=== PATIENT | female | born 1985 | race Caucasian/White ===

== ENCOUNTER 2020-11-16 13:58 | Emergency (ER) | payer BC ==
--- NOTE | 2020-11-16 14:45 | ED ---
General Adult HPI - General Chief complaint: Nausea/Vomiting/Diarrhea Stated complaint: ABD pain Time Seen by Provider: 11/16/20 14:19 Source: patient Mode of arrival: ambulatory Limitations: no limitations - History of Present Illness Initial comments: Patient is a 35-year-old female presenting to emergency Department with complaints of right upper quadrant pain 5 days. Patient states the pain started on Thursday and she's been also having nausea and vomiting. Patient describes the pain is mostly in her epigastric and right upper quadrant but also she feels like "her abdomen spasms and she has referred pain all the way through to her back on both sides." At its worse she describes the pain as a 9/10, currently it is lower at a 3/10. Patient states [facility], was evaluated with labs and ultrasound and they believe it could be her gallbladder. Patient was discharged home with GI follow-up. Patient states she did call the GI doctor yesterday and were not able to get in since her office is closed however they said if the pain intensifies to go back into the ER. Patient states this morning her pain was at its worse and she continues to have nausea and vomiting. Patient states she was able to keep down some broth last night and some crackers. Patient denies history of abdominal surgeries, she denies any fever or chills. She denies any chest pain or shortness of breath. She states she has been having intermittent diarrhea, no dysuria. She states she is not . She has no further complaints at this time. Upon arrival to the ER, her vital signs are stable. - Related Data Home Medications Medication Instructions Recorded Confirmed Famotidine [Pepcid] 20 mg PO BID 11/16/20 11/16/20 Ibuprofen [Motrin Ib] 400 mg PO Q8H PRN 11/16/20 11/16/20 Ondansetron [Zofran] 4 mg PO Q8H PRN 11/16/20 11/16/20 Previous Rx's Medication Instructions Recorded Dicyclomine [Bentyl] 20 mg PO TID #30 tablet 11/16/20 Allergies Allergy/AdvReac Type Severity Reaction Status Date / Time No Known Allergies Allergy Verified 11/16/20 15:03 Review of Systems ROS Statement: Those systems with pertinent positive or pertinent negative responses have been documented in the HPI. ROS Other: All systems not noted in ROS Statement are negative. Past Medical History Past Medical History: No Reported History History of Any Multi-Drug Resistant Organisms: None Reported Past Surgical History: Orthopedic Surgery, Tonsillectomy Past Psychological History: No Psychological Hx Reported Smoking Status: Current every day smoker Past Alcohol Use History: Daily Past Drug Use History: None Reported General Exam - General Exam Comments Initial Comments: GENERAL: Patient is well-developed and well-nourished. Patient is nontoxic and in no acute distress. HEAD: Atraumatic, normocephalic. EYES: Pupils equal round and reactive to light, extraocular movements intact, sclera anicteric, conjunctiva are normal. Eyelids were unremarkable. ENT: TMs normal, nares patent, oropharynx clear without exudates. Moist mucous membranes. NECK: Normal range of motion, supple without lymphadenopathy or JVD. LUNGS: Unlabored respirations. Breath sounds clear to auscultation bilaterally and equal. No wheezes rales or rhonchi. HEART: Regular rate and rhythm without murmurs, rubs or gallops. ABDOMEN: Mildly tender to palpation epigastric and right upper quadrant, negative Ta sign at this time. Soft, normoactive bowel sounds. No guarding, no rebound. No masses appreciated. : Deferred MUSCULOSKELETAL: Normal extremities with adequate strength and normal range of motion, no pitting or edema. No clubbing or cyanosis. NEUROLOGICAL: Patient is alert and oriented x 3. Motor and sensory are also intact. Cranial nerves II through XII grossly intact. Symmetrical smile. Normal speech, normal gait. PSYCH: Normal mood, normal affect. SKIN: Warm, Dry, normal turgor, no rashes or lesions noted. Limitations: no limitations Course Vital Signs 11/16/20 11/16/20 14:09 17:16 Temperature 98.3 F 97.8 F Pulse Rate 93 78 Respiratory 18 16 Rate Blood Pressure 129/87 124/79 O2 Sat by Pulse 100 99 Oximetry Medical Decision Making - Medical Decision Making Patient is a healthy 35-year-old female presenting with epigastric pain, nausea and vomiting times one week. She was evaluated at [facility] days ago for similar complaint. She had labs and ultrasound which revealed no acute findings. She was prescribed Pepcid as well as Zofran for her symptoms. Patient's vital signs are stable upon arrival, her pain is minimal at this time, no nausea at this time. Labs are unremarkable, no leukocytosis. Urine does have somewhat however she states she did start her menstrual cycle. There is a little bit of bacteria as well, this will be cultured. Patient denies any dysuria or frequency. CT of the abdomen also shows no acute process. I discussed with patient this could be viral in nature, could also be biliary colic. Patient will continue to follow-up with her GI doctor. I did give her a trial of Bentyl. She is in agreement with this plan of care. She is stable for discharge. Return parameters were discussed with the patient she verbalized understanding. Case discussed with Dr. Burnham. - Lab Data Result diagrams: 11/16/20 14:38 11/16/20 14:38 Lab Results 11/16/20 11/16/20 11/16/20 Range/Units 14:38 14:38 14:38 WBC 8.6 (3.8-10.6) k/uL RBC 4.98 (3.80-5.40) m/uL Hgb 16.1 H (11.4-16.0) gm/dL Hct 47.3 H (34.0-46.0) % MCV 95.0 (80.0-100.0) fL MCH 32.4 (25.0-35.0) pg MCHC 34.1 (31.0-37.0) g/dL RDW 12.3 (11.5-15.5) % Plt Count 238 (150-450) k/uL MPV 6.6 Neutrophils % 76 % Lymphocytes % 15 % Monocytes % 3 % Eosinophils % 4 % Basophils % 1 % Neutrophils # 6.5 (1.3-7.7) k/uL Lymphocytes # 1.3 (1.0-4.8) k/uL Monocytes # 0.3 (0-1.0) k/uL Eosinophils # 0.3 (0-0.7) k/uL Basophils # 0.1 (0-0.2) k/uL PT 10.6 (9.0-12.0) sec INR 1.0 (<1.2) APTT 24.4 (22.0-30.0) sec Sodium (137-145) mmol/L Potassium (3.5-5.1) mmol/L Chloride (98-107) mmol/L Carbon Dioxide (22-30) mmol/L Anion Gap mmol/L BUN (7-17) mg/dL Creatinine (0.52-1.04) mg/dL Est GFR (CKD-EPI)AfAm (>60 ml/min/1.73 sqM) Est GFR (CKD-EPI)NonAf (>60 ml/min/1.73 sqM) Glucose (74-99) mg/dL Plasma Lactic Acid Moise (0.7-2.0) mmol/L Calcium (8.4-10.2) mg/dL Total Bilirubin (0.2-1.3) mg/dL AST (14-36) U/L ALT (4-34) U/L Alkaline Phosphatase (38-126) U/L Total Protein (6.3-8.2) g/dL Albumin (3.5-5.0) g/dL Amylase (30-110) U/L Lipase (23-300) U/L Urine Color Yellow Urine Appearance Cloudy H (Clear) Urine pH 6.5 (5.0-8.0) Ur Specific Vichy 1.027 (1.001-1.035) Urine Protein 1+ H (Negative) Urine Glucose (UA) Negative (Negative) Urine Ketones 2+ H (Negative) Urine Blood Moderate H (Negative) Urine Nitrite Negative (Negative) Urine Bilirubin Negative (Negative) Urine Urobilinogen 12.0 (<2.0) mg/dL Ur Leukocyte Esterase Large H (Negative) Urine RBC 16 H (0-5) /hpf Urine WBC 16 H (0-5) /hpf Ur Squamous Epith Cells 7 H (0-4) /hpf Urine Bacteria Many H (None) /hpf Urine Mucus Many H (None) /hpf Urine HCG, Qual (Not Detectd) 11/16/20 11/16/20 11/16/20 Range/Units 14:38 14:38 14:38 WBC (3.8-10.6) k/uL RBC (3.80-5.40) m/uL Hgb (11.4-16.0) gm/dL Hct (34.0-46.0) % MCV (80.0-100.0) fL MCH (25.0-35.0) pg MCHC (31.0-37.0) g/dL RDW (11.5-15.5) % Plt Count (150-450) k/uL MPV Neutrophils % % Lymphocytes % % Monocytes % % Eosinophils % % Basophils % % Neutrophils # (1.3-7.7) k/uL Lymphocytes # (1.0-4.8) k/uL Monocytes # (0-1.0) k/uL Eosinophils # (0-0.7) k/uL Basophils # (0-0.2) k/uL PT (9.0-12.0) sec INR (<1.2) APTT (22.0-30.0) sec Sodium 137 (137-145) mmol/L Potassium 4.0 (3.5-5.1) mmol/L Chloride 106 (98-107) mmol/L Carbon Dioxide 25 (22-30) mmol/L Anion Gap 6 mmol/L BUN 10 (7-17) mg/dL Creatinine 0.73 (0.52-1.04) mg/dL Est GFR (CKD-EPI)AfAm >90 (>60 ml/min/1.73 sqM) Est GFR (CKD-EPI)NonAf >90 (>60 ml/min/1.73 sqM) Glucose 94 (74-99) mg/dL Plasma Lactic Acid Moise 1.2 (0.7-2.0) mmol/L Calcium 9.7 (8.4-10.2) mg/dL Total Bilirubin 0.7 (0.2-1.3) mg/dL AST 26 (14-36) U/L ALT 18 (4-34) U/L Alkaline Phosphatase 70 (38-126) U/L Total Protein 7.8 (6.3-8.2) g/dL Albumin 4.9 (3.5-5.0) g/dL Amylase 51 (30-110) U/L Lipase 39 (23-300) U/L Urine Color Urine Appearance (Clear) Urine pH (5.0-8.0) Ur Specific Vichy (1.001-1.035) Urine Protein (Negative) Urine Glucose (UA) (Negative) Urine Ketones (Negative) Urine Blood (Negative) Urine Nitrite (Negative) Urine Bilirubin (Negative) Urine Urobilinogen (<2.0) mg/dL Ur Leukocyte Esterase (Negative) Urine RBC (0-5) /hpf Urine WBC (0-5) /hpf Ur Squamous Epith Cells (0-4) /hpf Urine Bacteria (None) /hpf Urine Mucus (None) /hpf Urine HCG, Qual Not Detected (Not Detectd) Disposition Clinical Impression: Epigastric abdominal pain, Dehydration Disposition: HOME SELF-CARE Condition: Stable Instructions (If sedation given, give patient instructions): Abdominal Pain (ED) Additional Instructions: Please return to the Emergency Department if symptoms worsen or any other concerns. Urine is being cultured. Trial of Bentyl for abdominal cramping. May continue with Tylenol or Motrin for discomfort as well as her already prescribed medications. Please follow up with GI. Prescriptions: Dicyclomine [Bentyl] 20 mg PO TID #30 tablet Is patient prescribed a controlled substance at d/c from ED?: No Referrals: None,Stated [Primary Care Provider] - 1-2 days
[2020-11-16] MEDS: SODIUM CHLORIDE 0.9% 1,000 ML IV STA (15:06)
[2020-11-16 15:24] LABS: Basophils # (A) 0.1 k/uL (0-0.2); Basophils % (A) 1 %; Eosinophils # (A) 0.3 k/uL (0-0.7); Eosinophils % (A) 4 %; HCT 47.3 % (34.0-46.0); HGB 16.1 gm/dL (11.4-16.0); Lymphocytes # (A) 1.3 k/uL (1.0-4.8); Lymphocytes % (A) 15 %; MCH 32.4 pg (25.0-35.0); MCHC 34.1 g/dL (31.0-37.0); Mean Platelet Volume 6.6; Monocytes # (A) 0.3 k/uL (0-1.0); Monocytes % (A) 3 %; Neutrophils # (A) 6.5 k/uL (1.3-7.7); Neutrophils % (A) 76 %; Platelet Count 238 k/uL (150-450); RBC 4.98 m/uL (3.80-5.40); RDW 12.3 % (11.5-15.5); WBC 8.6 k/uL (3.8-10.6)
[2020-11-16 15:35] LABS: ALT 18 U/L (4-34); AST 26 U/L (14-36); African American GFR (CKD) >90 (>60 ml/min/1.73 sqM); Albumin 4.9 g/dL (3.5-5.0); Alkaline Phosphatase 70 U/L (38-126); Amylase 51 U/L (30-110); Anion Gap 6 mmol/L; Blood Urea Nitrogen 10 mg/dL (7-17); Calcium 9.7 mg/dL (8.4-10.2); Carbon Dioxide 25 mmol/L (22-30); Chloride 106 mmol/L (98-107); Glucose 94 mg/dL (74-99); Lipase 39 U/L (23-300); Non-African American GFR(CKD) >90 (>60 ml/min/1.73 sqM); Sodium 137 mmol/L (137-145); Total Bilirubin 0.7 mg/dL (0.2-1.3); Total Protein 7.8 g/dL (6.3-8.2)
[2020-11-16 15:41] LABS: Partial Thromboplastin Time 24.4 sec (22.0-30.0); Prothrombin Time 10.6 sec (9.0-12.0)
[2020-11-16 15:47] LABS: Appearance,Urine Cloudy (Clear); Bacteria,Urine Many /hpf; Bilirubin,Urine Negative (Negative); Blood,Urine Moderate (Negative); Color,Urine Yellow; Glucose,Urine (UA) Negative (Negative); Ketones,Urine 2+ (Negative); Leukocyte Esterase,Urine Large (Negative); Mucus,Urine Many /hpf; Nitrite,Urine Negative (Negative); PH, Urine 6.5 (5.0-8.0); Protein,Urine 1+ (Negative); RBC,Urine 16 /hpf (0-5); Specific Gravity,Urine 1.027 (1.001-1.035); Squamous Epithelial Cell,Urine 7 /hpf (0-4); WBC,Urine 16 /hpf (0-5)
--- NOTE | 2020-11-16 16:30 | CT ---
EXAMINATION TYPE: CT abdomen pelvis w con DATE OF EXAM: 11/16/2020 COMPARISON: None INDICATION: Right upper quadrant abdominal pain, nausea, vomiting, and diarrhea x5 days. DLP: 1005.1 mGycm, Automated exposure control for dose reduction was used. CONTRAST: 100ml mL of Isovue 300. Study performed without Oral Contrast TECHNIQUE: Axial images were obtained from above the diaphragm to the pubic rami in the axial plane a t 5 mm thick sections. Reconstructed images are reviewed on the computer in the coronal plane. FINDINGS: Limited CT sections are obtained the lung bases. The lung bases are clear. CT ABDOMEN: Liver: Small cyst may be the superior right lobe liver measuring 0.7 cm. Spleen: Normal Pancreas: Normal Adrenal glands: The adrenal glands are normal. Gallbladder: Normal Kidneys: No masses are evident. No hydronephrosis is present. No cysts are present. Delayed images were obtained through the kidneys, which remain unremarkable. Aorta: Normal Inferior vena cava: Normal. CT PELVIS: There are a few small bowel loops containing fluid. Some mild ileus could be considered. No suspiciou s dilated small bowel loops are evident. Air and fecal debris is within the colon. The studies withou t oral contrast limiting bowel evaluation. Appendix: Normal as visualized. Urinary bladder: Normal. Genitourinary structures: Uterus is unremarkable. Adnexal regions are clear. Osseous structures: No suspicious lytic or sclerotic lesions. Right hip pin is noted. IMPRESSIONS: 1. y mild ileus is not excluded 2. Small cyst within the liver. 3. Suspicious changes to account for right upper quadrant pain are not radiographically evident.
[2020-11-16] MEDS: DICYCLOMINE 20 MG TAB PO STA (17:12)
[2020-11-16 17:17] VITALS: BP 124/79; PULSE 78; RESP 16; TEMP 97.8
== END 2020-11-16 17:16 | disposition home or self-care (01) ==
LOC: EC 13:58
DX: R10.11 Right upper quadrant pain (principal); R10.13 Epigastric pain; R19.7 Diarrhea, unspecified; R11.2 Nausea with vomiting, unspecified; E86.0 Dehydration; F17.200 Nicotine dependence, unspecified, uncomplicated
CPT/HCPCS: 36415; 80053; 82150; 83605; 83690; 85025; 85610; 85730; 81001; 81025; 87086; 74177; 99284; 96360; Q9967

== ENCOUNTER → 2024-11-07 | Outpatient (CLI) | payer BC ==
[2024-11-07 15:18] LABS: Basophils # (A) 0.05 X 10*3/uL (0.00-0.10); Basophils % (A) 0.9 %; Eosinophils # (A) 0.45 X 10*3/uL (0.04-0.35); Eosinophils % (A) 8.1 %; HCT 47.4 % (37.2-46.3); HGB 15.8 g/dL (12.0-15.0); Lymphocytes # (A) 1.41 X 10*3/uL (0.90-5.00); Lymphocytes % (A) 25.4 %; MCH 31.1 pg (27.0-32.0); MCHC 33.3 g/dL (32.0-37.0); MCV 93.3 FL (80.0-97.0); Mean Platelet Volume 9.1 FL (9.5-12.2); Monocytes # (A) 0.34 X 10*3/uL (0.20-1.00); Monocytes % (A) 6.1 %; NRBC Per 100 WBC 0 X 10*3/uL (0.00-0.01); Neutrophils # (A) 3.28 X 10*3/uL (1.80-7.70); Platelet Count 271 X 10*3/uL (140-440); RBC 5.08 X 10*6/uL (4.10-5.20); RDW 12.1 % (11.5-14.5); WBC 5.56 X 10*3/uL (4.50-10.00)
[2024-11-07 15:41] LABS: Blood Urea Nitrogen 11.2 mg/dL (9.0-27.0); Carbon Dioxide 20.8 mmol/L (21.6-31.8); Chloride 103 mmol/L (96-109); Glucose 100 mg/dL (70-110); Potassium 4.1 mmol/L (3.5-5.5); Sodium 138 mmol/L (135-145)
== END | disposition home or self-care (01) ==
LOC: LABWHC1 10:58
PROVIDERS: ATTEND Obstetrics & Gynecology
DX: Z01.818 Encounter for other preprocedural examination (principal)
CPT/HCPCS: 80051; 82565; 82947; 84520; 85025; 86850; 86900; 86901; 87086

== ENCOUNTER 2024-11-17 08:03 | Day surgery (SDC) | payer BC ==
[~2024-11-17 08:03] MED LIST: HYDROmorphone 0.5 MG/0.5 ML SYRINGE IVP PRN
[2024-11-17] MEDS: IV FLUID CONTINUATION 1,000 ML IV ONE ×2 (08:37→10:21)
[2024-11-17] MEDS: LACTATED RINGERS 1,000 ML IV SCH ×2 (08:46→12:56)
[2024-11-17] MEDS: MORPHINE SULFATE (PF) 1 MG/ML AMP INTRATHECA ONE (08:50)
[2024-11-17] MEDS: fentaNYL (PF) 50 MCG/ML 2 ML AMP INTRATHECA ONE (08:50)
[2024-11-17] MEDS: MIDAZOLAM 2 MG/2 ML VIAL IV ONE (08:50)
[2024-11-17] MEDS: DEXAMETHASONE SOD PHOSPHATE 4 MG/ML 1 ML VIAL IV ONE (09:08)
[2024-11-17] MEDS: ONDANSETRON 4 MG/2 ML VIAL IVP ONE (09:08)
--- NOTE | 2024-11-17 09:08 | P.ANPRN ---
Procedure Note - Anesthesia - Epidural/Spinal Spinal Date of Procedure: 11/17/24 Procedure Start Time: 08:55 Procedure Stop Time: 09:02 Location of Patient: PreOp Indication: Acute Post-Operative Pain Sedation Type: Sedate with meaningful contact maintained Preparation: Sterile Dressing Position: Sitting Catheter: None Needle Guage: 25 Injectate: 25 mcg of fentanyl mixed with 300 mcg of preservative-free morphine Narrative: Under sterile condition at L4-L5 interspinous space using 25-gauge 3-1/2 inch Saturnino needle with 1 attempt, after clear CSF, pain medication injected into subarachnoid space. Blood Aspirated: No Pain Paresthesia on Injection Noted: No Events: Uneventful and Well Tolerated
[2024-11-17] MEDS ORDERED: NEOSTIGMINE 1 MG/ML 10 ML VIAL ONE (09:26)
[2024-11-17] MEDS ORDERED: ROCURONIUM 10 MG/ML (5 ML VIAL) IV ONE (09:26)
[2024-11-17] MEDS ORDERED: KETOROLAC 15 MG/ML 1 ML VIAL ONE (09:26)
[2024-11-17] MEDS ORDERED: MIDAZOLAM 2 MG/2 ML VIAL ONE (09:26)
[2024-11-17] MEDS ORDERED: ACETAMINOPHEN IV (For NPO) 1,000 MG/100 ML VIAL ONE (09:26)
[2024-11-17] MEDS ORDERED: LIDOCAINE 1% INJ 10MG/ML (20 ML MDV) ONE (09:26)
[2024-11-17] MEDS ORDERED: SUCCINYLCHOLINE CHLORIDE 200 MG/10 ML VIAL IV ONE (09:26)
[2024-11-17] MEDS ORDERED: GLYCOPYRROLATE 0.2 MG/ML 2 ML VIAL ONE (09:26)
[2024-11-17] MEDS ORDERED: diphenhydrAMINE 50 MG/ML 1 ML VIAL ONE (09:26)
[2024-11-17] MEDS ORDERED: PROPOFOL 10 MG/ML 20 ML VIAL IV ONE (09:26)
[2024-11-17] MEDS ORDERED: fentaNYL (PF) 50 MCG/ML 2 ML AMP ONE (09:26)
[2024-11-17] MEDS: VASOPRESSIN 20 UNIT in SODIUM CHLORIDE 0.9% 60 ML IV ONE (09:46)
[2024-11-17] MEDS: VASOPRESSIN 20 UNIT/ML 1 ML VIAL SQ ONE ×2 (10:13)
[2024-11-17] MEDS: BACITRACIN OINT 1 EACH PACKET TOPICAL ONE (10:17)
[2024-11-17] MEDS ORDERED: METOCLOPRAMIDE 5 MG/ML 2 ML VIAL IVP PRN (10:56)
[2024-11-17] MEDS ORDERED: diphenhydrAMINE 25 MG CAP PO PRN (10:56)
[2024-11-17] MEDS ORDERED: SIMETHICONE 80 MG CHEWABLE PO PRN (10:56)
[2024-11-17] MEDS ORDERED: ONDANSETRON 4 MG/2 ML VIAL IVP PRN (10:56)
--- NOTE | 2024-11-17 11:07 | P.OP ---
Date of Procedure: 11/17/24 Preoperative Diagnosis: #1. Grade 3 cystocele with grade 2+ uterine prolapse, symptomatic Postoperative Diagnosis: Same Procedure(s) Performed: #1. Vaginal hysterectomy #2. Left salpingectomy #3. Anterior colporrhaphy Anesthesia: MARCI Surgeon: Dwain Sanchez Helper Maintenance Cleaning #1: Hayde Herndon Estimated Blood Loss (ml): 200 IV fluids (ml): 500 Urine output (ml): 60 Pathology: other (Uterus and left fallopian tube) Condition: stable Disposition: PACU Operative Findings: Examination under anesthesia confirmed the findings as noted in the diagnoses above with significant prolapse. Intraoperatively, the bilateral ovaries were normal to inspection and palpation. The right ovary was suspended fairly high as was the right fallopian tube and could not be accessed to remove the fallopian tube. Clear urine was seen both before, during, and after the procedure. Description of Procedure: The patient was prepped and draped in usual fashion after general endotracheal anesthesia was administered by the anesthesiologist. A weighted speculum was placed and the bladder drained of approximately 30 cc of clear earline urine. The cervix was grasped with a double-tooth tenaculum and the cervical vaginal mucosa infused with diluted vasopressin solution. It was then opened using a scalpel and then the mucosa reflected distally from the cervix. The posterior cul-de-sac peritoneum was identified and incised sharply with the Burch scissors, opened, and tagged with a stitch of 2-0 Vicryl for later use. The short weighted speculum was replaced with a long weighted speculum. Curved Sherwin Petrolia clamps were utilized to clamp the uterosacral ligaments bilaterally allowing them to be cut and suture-ligated with a transfixion stitch of 0 Vicryl. Serial bites were taking up the cardinal ligament towards the utero- ovarian pedicles on each side with each being cut, and suture-ligated with a transfixion stitch of 0 Vicryl. After ensuring that the vesicovaginal mucosa had been adequately reflected, the uterus was inverted posteriorly and the anterior peritoneum identified and noted to be open. This opening was enlarged to allow isolation of the utero-ovarian pedicle bilaterally it was clamped with a curved Sherwin Kellogg clamp on each side, cut, and suture-ligated with a transfixion stitch of 0 Vicryl followed by a free tie of 0 Vicryl. The ovaries were inspected and palpated and noted to be entirely normal though there was a small cyst on the left ovary which was benign in nature. The left fallopian tube was seen easily within the field and was brought down into the field further, clamped at its base with a curved Sherwin Petrolia clamp, cut, and the pedicle suture-ligated with a transfixion stitch of 0 Vicryl. Attempts to identify the right fallopian tube were unsuccessful as it was tethered high in the pelvis. The long weighted speculum was then replaced with a short weighted speculum and the previously placed stitch of 2-0 Vicryl was utilized to close the parietal peritoneum and a pursestring fashion. The uterosacral ligaments were affixed to each other using a stitch from each side of 0 Vicryl through the contralateral uterosacral ligament and vaginal mucosa. The uterosacral ligaments were tied to themselves and then the vaginal mucosal stitch tied down firmly. The intervening open vaginal mucosa posteriorly was closed with a [id number] stitch of 0 Vicryl. 1 stitch of 0 Vicryl was used in a [id number] fashion above the uterosacral closure but the superior portion left open and was grasped with 2 Allis clamps at its margins. The vesicovaginal mucosa was then infused with diluted vasopressin solution, undermined in the midline and divided with Allis clamps placed along the margin to the urethral apex. The mucosa was sharply and bluntly dissected from the underlying tissues. After adequate dissection had been carried out, serial Ale plication stitches were placed from the urethral apex to the apex of the vagina using 2-0 PDS. Prior to placing the plication stitches, a Pete catheter was placed and clear urine noted. After the Ale plication stitches had been completed, the intervening redundant vaginal mucosa was trimmed and discarded. Mucosa was then closed with a running locking stitch of 2-0 Vicryl from the urethral apex to the apex of the vagina. Hemostasis appeared to be excellent. The catheter was noted to be mobile and opened for clear earline urine. The vagina was packed with 1 inch iodoform gauze covered with bacitracin ointment. Estimated blood loss for the case was approximately 200 mL. There were no complications. All sponge, instrument, and needle counts were correct. The patient tolerated the procedure well and proceeded to the recovery room in stable condition.
[2024-11-17] MEDS: NALBUPHINE 10 MG/ML (10 ML MDV) IV PRN (12:55)
[2024-11-17] MEDS: KETOROLAC 15 MG/ML 1 ML VIAL IVP PRN (15:59)
[2024-11-17] MEDS: diphenhydrAMINE 50 MG/ML 1 ML VIAL IVP PRN (17:43)
[2024-11-17] MEDS: ACETAMINOPHEN TAB 325 MG TAB PO PRN (20:07)
[2024-11-17] MEDS: SENNOSIDES-DOCUSATE SODIUM 1 EACH TAB PO SCH (20:07)
[2024-11-18] MEDS: IBUPROFEN 600 MG TAB PO PRN (04:03)
[2024-11-18 04:59] LABS: Basophils % (A) 0 %; Eosinophils # (A) 0.1 k/uL (0-0.7); Eosinophils % (A) 1 %; HCT 36.7 % (34.0-46.0); HGB 12.4 gm/dL (11.4-16.0); Lymphocytes # (A) 1.2 k/uL (1.0-4.8); Lymphocytes % (A) 14 %; MCH 32.5 pg (25.0-35.0); MCHC 33.8 g/dL (31.0-37.0); MCV 96.2 fL (80.0-100.0); Mean Platelet Volume 7.5; Monocytes # (A) 0.5 k/uL (0-1.0); Monocytes % (A) 6 %; Neutrophils # (A) 6.7 k/uL (1.3-7.7); Neutrophils % (A) 78 %; Platelet Count 244 k/uL (150-450); RBC 3.82 m/uL (3.80-5.40); RDW 12.6 % (11.5-15.5); WBC 8.6 k/uL (3.8-10.6)
[2024-11-18 08:20] VITALS: BP 105/69; PULSE 80; RESP 18; TEMP 98.3
--- NOTE | 2024-11-18 09:50 | P.DS ---
Providers Date of admission: 11/17/2024 Expected date of discharge: 11/18/24 Attending physician: Dwain Sanchez Primary care physician: Stated None - Discharge Diagnosis(es) (1) Cystocele Current Visit: Yes Status: Acute (2) Uterine prolapse Current Visit: Yes Status: Acute Hospital Course: -39 year-old female that presented to [facility] yesterday for scheduled vaginal hysterectomy, anterior colporrhaphy. Patient has a history of uterine prolapse along with cystocele. For full details in this patient please see the dictated history and physical. Patient was taken back to the operating room where procedure was completed without complication. For full details on the pr ocedure please see the dictated operative report. Patient underwent vaginal hysterectomy, left salpingectomy, anterior colporrhaphy. Patient's postoperative course has been uneventful. On this postoperative day #1 she is ambulating and voiding without difficulty. She is tolerating a regular diet without nausea or vomiting. She denies concerns. She would like discharge home today. Patient Condition at Discharge: Good Plan - Discharge Summary New Discharge Prescriptions: No Action No Known Home Medications Discharge Medication List No Known Home Medications 11/10/24 [History] Follow up Appointment(s)/Referral(s): Hayde Herndon DO [Doctor of Osteopathic Medicine] - 2 Weeks Patient Instructions/Handouts: Vaginal Hysterectomy (DC), Vaginal Hysterectomy (GEN), Anterior Vaginal Repair (DC), Anterior Vaginal Repair (GEN) Activity/Diet/Wound Care/Special Instructions: [id number] ibuprofen 600 mg or 3 tablets every 6 hours as needed for pain. Senokot-S as needed for constipation symptoms. Bleeding precautions reviewed. Patient is to call the office and make a routine postoperative check for 2 weeks. Discharge Disposition: HOME SELF-CARE
--- NOTE | 2024-11-18 12:30 | P.PN ---
Progress Note - Text 11/18/24 647am 39-year-old female status post vaginal hysterectomy, she received spinal Duramorph for postop pain control. Patient seen and evaluated, she has a VAS of 0 with complaints of pruritus which was treated with Benadryl. Doing well
== END 2024-11-18 10:55 | disposition home or self-care (01) ==
LOC: OR 08:03 → 4FBP 10:48 → OR 11-18 10:55
PROVIDERS: ATTEND Obstetrics & Gynecology
DX: N81.2 Incomplete uterovaginal prolapse (principal); N83.202 Unspecified ovarian cyst, left side; N83.8 Other noninflammatory disorders of ovary, fallopian tube and broad ligament; G89.18 Other acute postprocedural pain; L29.89 Other pruritus; Z87.891 Personal history of nicotine dependence; Z80.3 Family history of malignant neoplasm of breast
CPT/HCPCS: 58262; 57240; 81025; 88305; 85025; J2250; J0330; J1200; J1100; J2300; J2710; J0690; J2405; J2003; J3010; J2274; J0131; J1885; J2704; J1596